=== PATIENT | male | born 1965 | race Caucasian/White ===

== ENCOUNTER 2016-11-21 12:22 | Emergency (ER) | payer OTHER ==
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
[2016-11-21 22:52] VITALS: BP 110/84
== END 2016-11-21 12:45 | disposition short-term general hospital (02) ==
LOC: ER 12:22
PROC: 0BH17EZ Insertion of Endotracheal Airway into Trachea, Via Natural or Artificial Opening (ICD-10-PCS; principal; 2016-11-21)
DX: S32.9XXA Fracture of unspecified parts of lumbosacral spine and pelvis, initial encounter for closed fracture (principal); K62.5 Hemorrhage of anus and rectum; I95.9 Hypotension, unspecified; R61 Generalized hyperhidrosis; F17.210 Nicotine dependence, cigarettes, uncomplicated; W30.0XXA Contact with combine harvester, initial encounter
CPT/HCPCS: 99291; 86900; 86901; 36415; 36430; 86850; 31500; P9016